=== PATIENT | female | born 1990 | race African-American/Black ===

== ENCOUNTER 2024-03-28 11:38 | Emergency (ER) | payer OTHER, SELFPAY ==
[2024-03-28 11:54] VITALS: BP 139/70; PULSE 87; RESP 16; TEMP 36.6; O2SAT 100
[2024-03-28 13:31] LABS: Basophils Percent Auto 0.5 % (0.2-1.2); Eosinophils Absolute Auto 0.1 K/mm3 (0-0.3); Eosinophils Percent Auto 1.3 % (0-4.4); Hematocrit 37.5 % (37.0-47.0); Immature Granulocyte Absolute 0.02 K/mm3 (0.00-0.031); Immature Granulocyte Percent A 0.2 % (0-0.5); Lymphocytes Absolute Auto 2.57 K/mm3 (0.9-3.2); Lymphocytes Percent Auto 30.8 % (18.3-44.2); Mean Corpuscular Hemoglobin 27.7 pg (26-34); Mean Corpuscular Volume 86.6 fl (80-100); Mean Platelet Volume 8.9 fl (7.4-10.4); Monocytes Absolute Auto 0.5 K/mm3 (0.1-0.6); Monocytes Percent Auto 5.9 % (2.6-8.5); Neutrophils Absolute Auto 5.1 K/mm3 (1.3-6.7); Neutrophils Percent Auto 61.3 % (45.5-73.1); Platelet Count Result 383 k/mm3 (150-375); Red Blood Count 4.33 M/mm3 (4.2-5.4); Red Cell Distribution Width 14.8 % (11.5-14.5); White Blood Count 8.3 K/mm3 (4.5-10.0)
[2024-03-28 13:38] LABS: Appearance Urine Clear (Clear); Bacteria Urine None Seen /hpf; Bilirubin Urine Negative (Negative); Blood Urine 3+ (Negative); Color Urine Yellow (Yellow); Glucose Urine UA Negative (Negative); Ketones Urine Negative (Negative); Leukocyte Esterase Ur Negative LEU/UL (Negative); Nitrate Urine Negative (Negative); Non Pathogenic Casts 0-2; Protein Urine Negative (Negative); RBC Urine >100 /hpf (0-2); Specific Grav Ur 1.009 (1.001-1.035); Squamous Epithelial Cell Urine None Seen /hpf (Few); Urobilinogen Urine 0.2 mg/dL (<2.0); WBC Urine 0-5 /hpf (0-3); pH Urine 5.5 (5.0-9.0)
[2024-03-28 13:41] LABS: Add Urine Microscopic? YES
[2024-03-28 13:43] LABS: Alanine Aminotransferase 8 U/L (6-35); Albumin Level 4.1 g/dL (3.5-5.1); Alkaline Phosphatase 69 U/L (38-126); Anion Gap 8 mmol/L (4-12); Aspartate Amino Transferase 22 U/L (14-36); Bilirubin,Total 0.3 mg/dL (0.2-1.3); Blood Urea Nitrogen 7 mg/dL (7-17); Calcium 8.6 mg/dL (8.4-10.2); Carbon Dioxide 27 mmol/L (22-30); Chloride 101 mmol/L (98-107); Estimated Glomerular Filt Rate > 60; Glucose 95 mg/dL (65-110); Sodium 136 mmol/L (137-145)
[2024-03-28 13:44] LABS: Prothrombin Time 13.3 Seconds (11.1-14.7)
[2024-03-28 13:45] LABS: Partial Thromboplastin Time 32.5 Seconds (22.3-36.8)
[2024-03-28 14:35] LABS: Pregnancy On Board Control Positive; Urine Pregnancy Test Negative
[2024-03-28] MEDS: KETOROLAC 15 MG/ML VIAL (*BKC) IV PUSH (14:54)
[2024-03-28] MEDS: SODIUM CHLORIDE 0.9% IV 1,000 ML 999 ML IV CONT (14:54)
[2024-03-28 14:59] VITALS: BP 126/82; PULSE 62; RESP 15; O2SAT 100
[2024-03-28 15:11] LABS: Thyroid Stimulating Hormone Reflex 0.396 uIU/mL (0.465-4.68)
--- NOTE | 2024-03-28 15:42 | ED.FEMALEGU ---
HPI - Female Genitourinary General Chief complaint: Vaginal Bleeding Stated complaint: heavy vaginal bleeding Time Seen by Provider: 03/28/24 14:04 History of Present Illness HPI Narrative: 33-year-old female with no past medical history presents to the emergency department for irregular vaginal bleeding. Patient states her LMP was 3 weeks ago. She had a short and light period couple of days and then it resolved. States 1 week later she began having a few days of bleeding again which then resolved. Yesterday she began bleeding more heavily which prompted her to come to the ED today. States at 8:00 a.m. this morning she saturated 2 tampons within 2 hours and passed multiple large clots. She states she feels fatigued but denies lightheadedness, syncope, chest pain or shortness of breath. She is reporting some lower abdominal cramping. She is not on control. Denies history of bleeding dyscrasias, denies gynecological history. Denies concern for or STDs. Denies dysuria or hematuria vaginal discharge. She is sexually active with 1 partner. Denies vaginal trauma. Reports a history of regular menstrual cycles up until this past month. Related Data Allergies Allergy/AdvReac Type Severity Reaction Status Date / Time cinnamon Allergy Unknown Verified 03/28/24 16:12 Review of Systems Review of Systems: All systems reviewed & are unremarkable except as noted in HPI and below Exam Narrative: GENERAL: Well-appearing, well-nourished, and in no acute distress. HEAD: Normocephalic, atraumatic. EYES: PERRLA and EOMI. ENT: Nares clear, no rhinorrhea or epistaxis. Mucous membranes moist. NECK: Supple. CHEST: Clear to auscultation. No respiratory distress. HEART: Regular rate and rhythm. No murmur heard. Normal peripheral pulses. ABDOMEN: Soft, nontender, nondistended, normal active bowel sounds. no rebound, guarding or rigidity. No CVA tenderness. : Normal external genitalia. Minimal a blood in the vaginal vault. No clots or discharge visualized. Cervical os is closed. No CMT, adnexal masses or tenderness. EXTREMITIES: Normal range of motion. No edema. SKIN: Warm, dry, no rash. NEURO: No focal deficits. Alert and oriented x3 Course Vital Signs Vital signs: Vital Signs Temperature 97.8 F 03/28/24 11:54 Pulse Rate 87 07/14/24 11:54 Respiratory Rate 16 03/28/24 11:54 Blood Pressure 139/70 03/28/24 11:54 Pulse Oximetry 100 03/28/24 11:54 Oxygen Delivery Room Air 03/28/24 11:54 Temperature 97.8 F 03/28/24 11:54 Pulse Rate 70 03/28/24 16:53 Respiratory Rate 16 03/28/24 16:53 Blood Pressure 122/82 03/28/24 16:53 Pulse Oximetry 100 03/28/24 16:53 Oxygen Delivery Room Air 03/28/24 11:54 MDM - Female Genitourinary MDM Narrative Medical decision making narrative: 33-year-old female with no past medical history presents to emergency department for regular vaginal bleeding and heavy bleeding this morning. Triage vitals stable. Exam is significant for the above. She is well-appearing on exam. CBCs of the leukocytosis. Hemoglobin is stable at 12. Chemistries are unremarkable. UA with a large amount of blood, no UTI. is negative. TSH is low at 0.396, reflex T4 is normal. workup discussed with the patient. patient was had put in a tampon and put on a pad prior to arrival to the ED. in 4 hour she had saturated the tampon but had not saturated the pad. Her bleeding was significantly improved on exam there is no signs of hemorrhaging, no large clots visualized. She does not have a chrome cleaner unfortunately but I do feel she is safe to be discharged home with outpatient follow-up. Referral provided. I did offer to start her on control to assist with menorrhagia which she politely declined. She was given IV Toradol and IV fluids with improvement in symptoms. Will send ibuprofen to the pharmacy and encourage close follow-up with gynecology. Stric
[2024-03-28 16:29] LABS: Free T4 Free Thyroxine Reflex 1.08 ng/dL (0.78-2.19)
[2024-03-28 16:53] VITALS: BP 122/82; PULSE 70; RESP 16; O2SAT 100
== END 2024-03-28 16:54 | disposition home or self-care (01) ==
PROVIDERS: Emergency Medicine; Emergency Provider Physician Assistant
DX: N92.0 Excessive and frequent menstruation with regular cycle (principal)
CPT/HCPCS: 36415; 80053; 81001; 81025; 84439; 84443; 84480; 85025; 85610; 85730; 96361; 96374; 99284; J1885; J7030

== ENCOUNTER 2024-04-02 14:48 | Outpatient (CLI) | payer OTHER, SELFPAY ==
--- NOTE | ~2024-04-02 | US_ITS ---
EXAMINATION: US pelvic complete w TV INDICATION: Abnormal uterine and vaginal bleeding Comparison:No prior studies for comparison. TECHNIQUE: Multiple transabdominal and endovaginal sonographic images of the pelvis performed. FINDINGS: The uterus measures 7.2 x 3.7 x 4.7 cm. The endometrial complex measures 6 mm. The right ovary measures 2.3 x 2.4 x 1.9 cm and the left ovary measures 2 x 1.2 x 1 cm. There are sm all follicles in each ovary. Normal doppler signal in both ovaries. There is no free fluid in the pelvis. There are no abnormal masses seen on either side. IMPRESSION: 1. Unremarkable pelvic ultrasound. Reviewed, dictated and finalized at location B.
== END 2024-04-02 14:49 ==
LOC: MICIMG 14:50
PROVIDERS: PCP Student in an Organized Health Care Education/Training Program; Visit Provider Student in an Organized Health Care Education/Training Program
DX: N93.9 Abnormal uterine and vaginal bleeding, unspecified (principal)
CPT/HCPCS: 76830; 76856

== ENCOUNTER 2025-02-22 20:28 | Emergency (ER) | payer OTHER, SELFPAY ==
--- NOTE | ~2025-02-22 | CT_ITS ---
CT abdomen pelvis w con Ordering provider: Diana Mccabe APRN History: 34 years Female with . generalized abdominal pain . Comparison: None. Technique: CT abdomen and pelvis with IV and without oral contrast. Automated exposure control and it erative reconstruction technique were employed. The dose-length product was 1689.45 mGy-cm. 100 mL Om nipaque 350 was given IV. Findings: VISUALIZED LOWER CHEST: Normal. UPPER ABDOMINAL ORGANS: Liver: Hepatomegaly. Gallbladder: Calcification is seen in the area of the neck of the gallbladder which may be a stone or wall calcification. Slightly thickened wall is noted. Spleen: Normal. Stomach/duodenum: Normal. Pancreas: Normal. Adrenals: Normal. Kidneys: Normal. PELVIC ORGANS: The bladder is underfilled. Uterus: Normal. 1.8 cm left ovarian cyst is noted. BOWEL AND MESENTERY: Colon: No evidence of diverticulitis. Normal appendix. Small Bowel: Normal. No obstruction. Peritoneum/mesentery: No free air or free fluid. No mesenteric lymphadenopathy. RETROPERITONEUM: Normal aorta. No retroperitoneal lymphadenopathy. MUSCULOSKELETAL: Superficial soft tissues: A fat-containing umbilical hernia. Otherwise, The superficial soft tissues are normal. Bones: Normal spine. Bilateral sacroiliacs. IMPRESSION: 1. Calcific area in the neck of the gallbladder which may be stones or wall calcification. Slight th ickening of the wall is noted. Ultrasound evaluation advised. 2. Hepatomegaly. 3. No evidence of appendicitis, diverticulitis or intestinal obstruction. Reviewed, dictated and finalized at location A. IMPRESSION: 1. Calcific area in the neck of the gallbladder which may be stones or wall ca lcification. Slight thickening of the wall is noted. Ultrasound evaluation advi sed. 2. Hepatomegaly. 3. No evidence of appendicitis, diverticulitis or intestinal obstruction.
[2025-02-22 20:33] VITALS: BP 109/77; PULSE 65; RESP 11; TEMP 36.7; O2SAT 100
--- NOTE | 2025-02-22 20:47 | PC.NURSE ---
Pt attempted to give urine sample but did not have enough for urinalysis.
[2025-02-22 20:50] LABS: BEDSIDEPREGUCG Negative (Negative)
[2025-02-22 20:55] LABS: Basophils Percent Auto 0.2 % (0.2-1.2); Eosinophils Absolute Auto 0.1 K/mm3 (0-0.3); Eosinophils Percent Auto 0.4 % (0-4.4); Hemoglobin 12.3 g/dL (12.0-15.0); Immature Granulocyte Absolute 0.03 K/mm3 (0.00-0.031); Immature Granulocyte Percent A 0.2 % (0-0.5); Lymphocytes Absolute Auto 2.61 K/mm3 (0.9-3.2); Lymphocytes Percent Auto 19.3 % (18.3-44.2); Mean Corpuscular HGB Conc 30.8 g/dl (32-36); Mean Corpuscular Hemoglobin 27.4 pg (26-34); Mean Corpuscular Volume 89.1 fl (80-100); Mean Platelet Volume 8.8 fl (7.4-10.4); Monocytes Absolute Auto 0.8 K/mm3 (0.1-0.6); Monocytes Percent Auto 6.2 % (2.6-8.5); Neutrophils Absolute Auto 9.9 K/mm3 (1.3-6.7); Neutrophils Percent Auto 73.7 % (45.5-73.1); Platelet Count Result 431 k/mm3 (150-375); Red Blood Count 4.49 M/mm3 (4.2-5.4); Red Cell Distribution Width 14.8 % (11.5-14.5); White Blood Count 13.5 K/mm3 (4.5-10.0)
[2025-02-22 21:11] LABS: Alanine Aminotransferase 10 U/L (6-35); Albumin Level 4.2 g/dL (3.5-5.1); Alkaline Phosphatase 82 U/L (38-126); Anion Gap 8 mmol/L (4-12); Aspartate Amino Transferase 24 U/L (14-36); Bilirubin,Total 0.4 mg/dL (0.2-1.3); Blood Urea Nitrogen 4 mg/dL (7-17); Calcium 9.2 mg/dL (8.4-10.2); Carbon Dioxide 25 mmol/L (22-30); Chloride 104 mmol/L (98-107); Estimated CRCL calculation 147 ml/min; Estimated Glomerular Filt Rate > 60; Glucose 122 mg/dL (65-110); Lipase 72 U/L (23-300); Potassium 3.5 mmol/L (3.4-5.0); Sodium 137 mmol/L (137-145); Total Protein 7.8 g/dL (6.3-8.2)
[2025-02-22 21:23] VITALS: BP 108/71; PULSE 60; RESP 14; O2SAT 94
[2025-02-22] MEDS: SODIUM CHLORIDE 0.9% IV 1,000 ML 999 ML IV CONT (21:23)
--- NOTE | 2025-02-22 21:23 | ED_ITS ---
HPI - Abdominal Pain General Chief Complaint: Abdominal Pain Stated Complaint: Abd pain, nausea/Vomiting Time Seen by Provider: 02/22/25 20:31 History of Present Illness HPI narrative: Patient is a 34-year-old female who presents to the ER with nausea/vomiting and abdominal pain. She reports she ate food around 10:00 a.m. this morning and her symptoms started around 11:00 a.m.. Patient reports she had the same symptoms on Friday. She reports it feels like there is a rubber band around my whole abdomen. She reports her last bowel movement was earlier today and it was ?looser but not diarrhea. Patient denies any urinary symptoms, chest pain, shortness of breath, recent fevers. She reports she drinks alcohol socially, but uses weed every day. Patient denies any chance of , her last menstrual period was 2 weeks ago. She any medical history relevant to this ER visit. Related Data Allergies Allergy/AdvReac Type Severity Reaction Status Date / Time cinnamon Allergy Mild Swelling Verified 02/22/25 20:42 of Lip/Tongue/Throat PMFSH Surgical History Surgical History (Updated 03/31/24 @ 08:19 by Peyton Loza CMA) Hx of tonsillectomy Family History Family History (Updated 03/31/24 @ 08:20 by Peyton Loza CMA) Mother Sickle cell anemia Sibling Sickle cell anemia Social History Social History (Updated 03/31/24 @ 08:20 by Peyton Loza CMA) Smoking status: Never smoker Alcohol intake: current Substance use: current Substance use type: marijuana Do You Feel Safe in your Home?: Yes Lack of Transportation: No Lack of Food: Never True Current Housing: I Have Housing Concerned About Future Housing: No Difficulty Paying Gas/Electric Bills: No Difficulty Paying for Meds: No Currently Unemployed: No Education: Bachelor's Degree Difficulty w/ Childcare or Family Care: No Living arrangements: with family Occupation/Education: occupation 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 Gender identity (if verbalized by the patient): Female Sexual Orientation (if Verbalized by the Patient): Straight or Heterosexual Course Vital Signs Vital signs: Vital Signs Temperature 36.7 C 02/22/25 20:33 Pulse Rate 65 02/22/25 20:33 Respiratory Rate 11 L 02/22/25 20:33 Blood Pressure 109/77 02/22/25 20:33 Pulse Oximetry 100 02/22/25 20:33 Oxygen Delivery Room Air 02/22/25 20:33 Temperature 36.7 C 02/22/25 20:33 Pulse Rate 60 02/22/25 21:23 Respiratory Rate 14 02/22/25 21:23 Blood Pressure 108/71 02/22/25 21:23 Pulse Oximetry 94 02/22/25 21:23 Oxygen Delivery Room Air 02/22/25 20:33 MDM - Abdominal Pain MDM Narrative Medical decision making narrative: Patient is a 34-year-old female who presents to the ER with nausea/vomiting and abdominal pain. She reports she ate food around 10:00 a.m. this morning and her symptoms started around 11:00 a.m.. Patient reports she had the same symptoms on Friday. She reports it feels like there is a rubber band around my whole abdomen. She reports her last bowel movement was earlier today and it was ?looser but not diarrhea. Patient denies any urinary symptoms, chest pain, shortness of breath, recent fevers. She reports she drinks alcohol socially, but uses weed every day. Patient denies any chance of , her last menstrual period was 2 weeks ago. She any medical history relevant to this ER visit. Labs Ordered: CBC, CMP, UA, UDS, lipase Imaging Ordered: CT abdomen pelvis Medications Ordered: 1 L normal saline IV bolus, Haldol IM, Benadryl 25 mg IV, Reglan 10 mg IV Results: CT abdomen pelvis indicates 1. Calcific area in the neck of the gallbladder which may be stones or wall calcification. Slight thickening of the wall is noted. Ultrasound evaluation advised. 2. Hepatomegaly. 3. No evidence of appendicitis, diverticulitis or intestinal obstruction. Diagnosis: cholecystitis, drug-induced nausea and vomiting Consults: general surgery (outpatient) Patient Education/Shared MDM: Results of lab work and imaging shared with patient. She endorses mild improvement of symptoms following medication administration, but continues to endorse mild RUQ pain. Pt will be given a dose of Zofran IV, then Weston PO prior to leaving to ensure she can tolerate PO intake. She was strongly advised to only take in clear liquids for the next 3-4 days. Patient advised to maintain hydration status upon discharge and follow-up with general surgery as soon as possible. She will be discharged home with a prescription for Augmentin, Zofran, and Weston. Strict return precautions provided. Patient verbalized understanding and is in agreement with plan. Vital signs stable at time of discharge. All questions answered. Differential Diagnosis Differential diagnosis: Likely abdominal pain, calculus of kidney, gastroenteritis and other (Cholecystitis, drug induced nausea and vomiting) Lab Data Attestation: I reviewed the patient's lab results. 02/22/25 20:48 02/22/25 20:48 Labs: Lab Results 02/22/25 02/22/25 02/22/25 Range/Units 20:45 20:48 21:22 WBC 13.5 H (4.5-10.0) K/mm3 RBC 4.49 (4.2-5.4) M/mm3 Hgb 12.3 (12.0-15.0) g/dL Hct 40.0 (37.0-47.0) % MCV 89.1 (80-100) fl MCH 27.4 (26-34) pg MCHC 30.8 L (32-36) g/dl RDW 14.8 H (11.5-14.5) % Plt Count 431 H (150-375) k/mm3 MPV 8.8 (7.4-10.4) fl Immature Gran % (Auto) 0.2 (0-0.5) % Neut % (Auto) 73.7 H (45.5-73.1) % Lymph % (Auto) 19.3 (18.3-44.2) % Menard % (Auto) 6.2 (2.6-8.5) % Eos % (Auto) 0.4 (0-4.4) % Baso % (Auto) 0.2 (0.2-1.2) % Lymph # (Auto) 2.61 (0.9-3.2) K/mm3 Menard # (Auto) 0.8 H (0.1-0.6) K/mm3 Eos # (Auto) 0.1 (0-0.3) K/mm3 Baso # (Auto) 0.0 (0.0-0.1) K/mm3 Abs Immat Gran (auto) 0.03 (0.00-0.031) K/mm3 Absolute Neuts (auto) 9.9 H (1.3-6.7) K/mm3 Absolute Nucleated RBC 0.000 (0.0-0.012) K/mm3 Nucleated RBC % 0.0 (0.0-0.2) % Sodium 137 (137-145) mmol/L Potassium 3.5 (3.4-5.0) mmol/L Chloride 104 (98-107) mmol/L Carbon Dioxide 25 (22-30) mmol/L Anion Gap 8 (4-12) mmol/L BUN 4 L (7-17) mg/dL Creatinine 0.62 L (0.7-1.0) mg/dL Estim Creat Clear Calc 147 ml/min Estimated GFR > 60 (59 - ) Glucose 122 H (65-110) mg/dL Calcium 9.2 (8.4-10.2) mg/dL Total Bilirubin 0.4 (0.2-1.3) mg/dL AST 24 (14-36) U/L ALT 10 (6-35) U/L Alkaline Phosphatase 82 (38-126) U/L Total Protein 7.8 (6.3-8.2) g/dL Albumin 4.2 (3.5-5.1) g/dL Lipase 72 (23-300) U/L Urine Color Yellow (Yellow) Urine Appearance Turbid H (Clear) Urine pH 5.0 (5.0-9.0) Ur Specific [place] 1.024 (1.001-1.035) Urine Protein 1+ H (Negative) mg/dL Urine Glucose (UA) Negative (Negative) mg/dL Urine Ketones 1+ H (Negative) mg/dL Ur Blood (Man) Negative (Negative) Urine Nitrate Negative (Negative) Urine Bilirubin Negative (Negative) Urine Urobilinogen 1.0 (<2.0) mg/dL Leukocyte Esterase Rfl Negative (Negative) LEE/UL Urine RBC 3-5 H (0-2) /hpf Urine WBC 0-5 (0-3) /hpf Ur Squamous Epith Cells Few (Few) /hpf Urine Bacteria 1+ H /hpf Urine Casts 3-5 POC Urine HCG, Qual Negative Negative (Negative) Urine Opiates Screen (Negative) Urine Methadone Screen (Negative) Ur Barbiturates Screen (Negative) Ur Phencyclidine Scrn (Negative) Ur Amphetamine Screen (Negative) U Benzodiazepines Scrn (Negative) Urine Cocaine Screen (Negative) U Cannabinoids Screen (Negative) 02/22/25 Range/Units 21:24 WBC (4.5-10.0) K/mm3 RBC (4.2-5.4) M/mm3 Hgb (12.0-15.0) g/dL Hct (37.0-47.0) % MCV (80-100) fl MCH (26-34) pg MCHC (32-36) g/dl RDW (11.5-14.5) % Plt Count (150-375) k/mm3 MPV (7.4-10.4) fl Immature Gran % (Auto) (0-0.5) % Neut % (Auto) (45.5-73.1) % Lymph % (Auto) (18.3-44.2) % Menard % (Auto) (2.6-8.5) % Eos % (Auto) (0-4.4) % Baso % (Auto) (0.2-1.2) % Lymph # (Auto) (0.9-3.2) K/mm3 Menard # (Auto) (0.1-0.6) K/mm3 Eos # (Auto) (0-0.3) K/mm3 Baso # (Auto) (0.0-0.1) K/mm3 Abs Immat Gran (auto) (0.00-0.031) K/mm3 Absolute Neuts (auto) (1.3-6.7) K/mm3 Absolute Nucleated RBC (0.0-0.012) K/mm3 Nucleated RBC % (0.0-0.2) % Sodium (137-145) mmol/L Potassium (3.4-5.0) mmol/L Chloride (98-107) mmol/L Carbon Dioxide (22-30) mmol/L Anion Gap (4-12) mmol/L BUN (7-17) mg/dL Creatinine (0.7-1.0) mg/dL Estim Creat Clear Calc ml/min Estimated GFR (59 - ) Glucose (65-110) mg/dL Calcium (8.4-10.2) mg/dL Total Bilirubin (0.2-1.3) mg/dL AST (14-36) U/L ALT (6-35) U/L Alkaline Phosphatase (38-126) U/L Total Protein (6.3-8.2) g/dL Albumin (3.5-5.1) g/dL Lipase (23-300) U/L Urine Color (Yellow) Urine Appearance (Clear) Urine pH (5.0-9.0) Ur Specific [place] (1.001-1.035) Urine Protein (Negative) mg/dL Urine Glucose (UA) (Negative) mg/dL Urine Ketones (Negative) mg/dL Ur Blood (Man) (Negative) Urine Nitrate (Negative) Urine Bilirubin (Negative) Urine Urobilinogen (<2.0) mg/dL Leukocyte Esterase Rfl (Negative) LEE/UL Urine RBC (0-2) /hpf Urine WBC (0-3) /hpf Ur Squamous Epith Cells (Few) /hpf Urine Bacteria /hpf Urine Casts POC Urine HCG, Qual (Negative) Urine Opiates Screen Negative (Negative) Urine Methadone Screen Negative (Negative) Ur Barbiturates Screen Negative (Negative) Ur Phencyclidine Scrn Negative (Negative) Ur Amphetamine Screen Negative (Negative) U Benzodiazepines Scrn Negative (Negative) Urine Cocaine Screen Negative (Negative) U Cannabinoids Screen Positive A (Negative) Imaging Data Attestation: I personally reviewed and interpreted this imaging study as follows: Radiologist's impression: ITS Impressions Abdomen/Pelvis CT 02/22/25 22:59 IMPRESSION: 1. Calcific area in the neck of the gallbladder which may be stones or wall calcification. Slight thickening of the wall is noted. Ultrasound evaluation advised. 2. Hepatomegaly. 3. No evidence of appendicitis, diverticulitis or intestinal obstruction. Discharge Plan Discharge Clinical Impression: Acute cholecystitis, Drug-induced nausea and vomiting, Abdominal pain Patient Disposition: Home Condition: Stable Instructions: Antibiotic Form, Cholecystitis (ED), Abdominal Pain (ED) Additional Instructions: Please return to the ER with any worsening symptoms. Follow-up with General surgery as soon as possible. Take all medications as prescribed, including regularly scheduled medications. Complete your full dose of antibiotics. Patient Language: Arabic Prescriptions: New ondansetron 4 mg tablet,disintegrating 4 mg PO Q8H Qty: 21 0RF amoxicillin-pot clavulanate 875-125 mg tablet 1 tablet PO Q12H Qty: 20 0RF hydrocodone-acetaminophen 5-325 mg tablet 1 tablet PO Q6H PRN (Reason: pain) Qty: 10 0RF No Action ibuprofen 800 mg tablet 800 mg PO TID PRN (Reason: pain) Qty: 20 0RF Follow-up/Referrals: Javad Alfredo MD [Primary Care Provider] - Edgar Cespedes DO [Physician] - (general surgery ) Stand Alone Forms: Work/School Release IP Time of Disposition: 00:32
[2025-02-22 21:24] LABS: BEDSIDEPREGUCG Negative (Negative)
[2025-02-22] MEDS: HALOPERIDOL LACTATE 5 MG/ML VIAL IM (21:24)
[2025-02-22 21:40] LABS: Add Urine Microscopic? YES; Appearance Urine Turbid (Clear); Bacteria Urine 1+ /hpf; Bilirubin Urine Negative (Negative); Blood Urine Negative (Negative); Color Urine Yellow (Yellow); Glucose Urine UA Negative (Negative); Ketones Urine 1+ mg/dL (Negative); Leukocyte Esterase Ur Negative LEU/UL (Negative); Nitrate Urine Negative (Negative); Protein Urine 1+ mg/dL (Negative); Specific Grav Ur 1.024 (1.001-1.035); Squamous Epithelial Cell Urine Few /hpf (Few); WBC Urine 0-5 /hpf (0-3)
[2025-02-22 21:53] VITALS: BP 116/79; PULSE 52; RESP 18; O2SAT 100
[2025-02-22] MEDS: diphenhydrAMINE HCl INJ 50 MG/ML VIAL 25 MG IV PUSH (22:14)
[2025-02-22] MEDS: METOCLOPRAMIDE HCL INJ 10 MG/2 ML VIAL IV PUSH (22:14)
[2025-02-22 22:50] LABS: Amphetamine Screen Urine Negative (Negative); Barbiturate Screen Urine Negative (Negative); Benzodiazepines Screen Urine Negative (Negative); Cannabinoid Screen Urine Positive (Negative); Cocaine Screen Urine Negative (Negative); Methadone Screen Urine Negative (Negative); Opiate Screen Urine Negative (Negative); Phencyclidine Screen Urine Negative (Negative)
[2025-02-22 23:01] VITALS: BP 128/87; PULSE 57; RESP 19; O2SAT 100
[2025-02-22 23:32] VITALS: BP 112/74; PULSE 64; RESP 21; O2SAT 100
[2025-02-23 00:01] VITALS: BP 122/85; PULSE 65; RESP 25; O2SAT 98
[2025-02-23 00:31] VITALS: BP 123/78; PULSE 53; RESP 21; O2SAT 99
[2025-02-23] MEDS: HYDROcodone/acetaminophen (*CRX) 5-325 MG TABLET 1 TAB PO (00:33)
[2025-02-23] MEDS: ONDANSETRON INJ 4 MG/2 ML VIAL IV PUSH (00:33)
== END 2025-02-23 00:42 | disposition home or self-care (01) ==
PROVIDERS: Emergency Provider Registered Nurse; PCP Student in an Organized Health Care Education/Training Program
DX: K81.0 Acute cholecystitis (principal); T40.711A Poisoning by cannabis, accidental (unintentional), initial encounter; R11.2 Nausea with vomiting, unspecified; R10.9 Unspecified abdominal pain; R16.0 Hepatomegaly, not elsewhere classified
CPT/HCPCS: 36415; 74177; 80053; 80307; 81001; 81025; 83690; 85025; 96361; 96372; 96374; 96375; 99284; A9270; J1200; J1630; J2405; J2765; J7030; Q9967

== ENCOUNTER 2025-04-05 08:10 | Outpatient (CLI) | payer OTHER, SELFPAY ==
--- OUTSIDE RECORDS SUMMARY | 2025-04-05 08:14 | XMS_ITS | Referral Summary ---
Author Organization [facility] Medical O ffice Building [address] [place] [id number] Care Team Providers Care Human Performance Professor Name Role Phone Elizabeth Medina MD Primary Care Provider Encounters Date Type Department Care Team Description 03/14/2025 Telephone [facility] 7th Floor [address] [place] [address] Jerica Trejo Scheduling Appointments (/) 03/07/2025 10:00 AM CDT Office Visit [facility] [address] [facility] [address], [address] [place] [address] Elizabeth Medina MD Encounter for screening and preventative care (Primary Dx); Encounter to establish care; Cervical cancer screening; Encounter for vaccination; Gallstones; ANDREA (generalized anxiety disorder); Primary insomnia; Depression screening from Last 3 Months Allergies No known active allergies Medications ondansetron ODT (ZOFRAN-ODT) 4 mg disintegrating tablet Take 1 tablet (4 mg total) by mouth every 8 (eight) hours as needed 03/04/20 25 Active HYDROcodone-acetam inophen (NORCO) 5-325 mg per tablet Take 1 tablet by mouth every 4 (four) hours as needed 02/24/20 25 025 Discontinued Active Problems Problem Noted Date Diagnosed Date Gallstones 03/07/2025 Primary insomnia 03/07/2025 ANDREA (generalized anxiety disorder) 03/07/2025 Immunizations Immunization Administration Dates Next Due Tdap 03/07/2025 Social History Tobacco Use Types Packs/Day Years Used Date Smoking Tobacco: Never Smokeless Tobacco: Never Tobacco Cessation:Counseling Given: Not Answered PHQ-2 Answer Date Recorded PHQ-2 Total Score (If total score is 3 or more points, staff should administer the PHQ-9) 2 03/07/2025 Comments Unknown Sex and Gender Information Value Date Recorded Sex Assigned at Not on file Legal Sex Female 10:43 AM FIRE[employer]AK C[employer]TER Gender Identity Female 07/28/2024 10:00 AM FIRE[employer]AK C[employer]TER Sexual Orientation Lesbian 07/28/2024 10 :00 AM FIRE[employer]AK C[employer]TER Sexual Orientation Pansexual 07/28/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 Vital Signs Vital Sign Reading Time Taken Comments Blood Pressure 101/64 03/07/2025 9:55 AM CDT Pulse 89 03/07/2025 9:55 AM CDT Temperature 36.7 C (98 F) 03/07/2025 9:55 AM CDT Respiratory Rate - - Oxygen Saturation 98% 03/07/2025 9:55 AM CDT Inhaled Oxygen Concentration - - Weight 143.5 kg (316 lb 6.4 oz) 03/07/2025 9:55 AM CDT Height 154.9 cm (5' 1) 03/07/2025 9:55 AM CDT Body Mass Index 59.78 03/07/2025 9:55 AM CDT Plan of Treatment Not on file Insurance [employer] Care Teams Human Performance Professor Relationship Specialty Start Date End Date Elizabeth Medina MD [address] [facility] [address] [place] [address] PCP - General 03/07/25
--- OUTSIDE RECORDS SUMMARY | 2025-04-05 08:14 | XMS_ITS | Clinical Summary ---
Author Organization [facility] Medical O ffice Building [address] [place] [phone] Care Team Providers Care Camp Nurse Name Role Phone Elizabeth Medina MD Primary Care Provider Allergies No known active allergies Medications ondansetron [...] insomnia 03/07/2025 ANDREA (generalized anxiety disorder) 03/07/2025 Encounters Date Type Department Care Team Description 03/14/2025 Telephone [facility] Obstetrics and Gynecology [facility] Outpatient Health 7th Floor [address] [place] [address] Jerica Trejo Scheduling Appointments (/) 03/07/2025 10:00 AM CDT Office Visit [facility] Complete Care [address] [facility] Medical Office Building 4, [address] [place] [address] Elizabeth Medina MD Encounter for screening and preventative care (Primary Dx); Encounter to establish care; Cervical cancer screening; Encounter for vaccination; Gallstones; ANDREA (generalized anxiety disorder); Primary insomnia; Depression screening from Last 3 Months Immunizations Immunization Administration Dates Next Due Tdap 03/07/2025 Surgical History Surgery Date Site/Laterality Comments TONSILLECTOMY 09/15/1992 - 09/14/1993 ADENOIDECTOMY 09/15/1992 - 09/14/1993 Family History * Patient is adopted Medical History Relation Name Comments Sickle cell anemia Other siblings Relation Name Status Comments Other siblings Social History Tobacco Use Types Packs/Day Years Used Date Smoking Tobacco: Never Smokeless Tobacco: Never Tobacco Cessation:Counseling Given: Not Answered PHQ-2 Answer Date Recorded PHQ-2 Total Score (If total score is 3 or more points, staff should administer the PHQ-9) 2 03/07/2025 Comments Unknown Sex and Gender Information Value Date Recorded Sex Assigned at Not on file Legal Sex 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 Gender Identity Female 07/28/2024 10:00 AM FOUNTAIN MANAGER Sexual Orientation Lesbian 07/28/2024 10 :00 AM FOUNTAIN MANAGER Sexual Orientation Pansexual 07/28/2024 10 :00 AM FOUNTAIN MANAGER Obstetrics History Last Filed Vital Signs Vital Sign Reading [...] 03/07/2025 9:55 AM CDT Plan of Treatment Health Maintenance Due Date Last Done Comments Cervical Cancer Screening 1989 Hepatitis C Screening 1989 Hepatitis B Screening 2007 Covid-19 Vaccine ( season) 2024 01/22/2021, 12/24/2020 Influenza Vaccine (#1) 2025 Depression Screening 03/07/2026 03/07/2025 Regular Well Visit/Exam 18-64 03/07/2026 03/07/2025 DTaP/Tdap/Td Vaccine (2 - Td or Tdap) 03/07/2035 03/07/2025 HPV Vaccines Aged Out No longer eligi ble based on patient's age to complete this topic Pneumococcal vaccine <65 Aged Out No longer eligible based on patient's age to complete this topic Varicella Vaccines Discontinued Insurance Care Teams Camp Nurse Relationship Specialty Start Date End Date Elizabeth Medina MD [address] [id number] PCP - General 03/07/25
[2025-04-05 09:03] LABS: Amylase 60 U/L (30-110)
== END 2025-04-05 08:11 | disposition home or self-care (01) ==
LOC: ANHLAB 08:11
PROVIDERS: Referring Provider Surgery; Visit Provider Anesthesiology
DX: K80.00 Calculus of gallbladder with acute cholecystitis without obstruction (principal)
CPT/HCPCS: 36415; 82150; 86850; 86900; 86901

== ENCOUNTER 2025-04-12 03:36 | Day surgery (SDC) | payer OTHER, SELFPAY ==
[2025-04-04 14:00] VITALS: BMI 57.2
--- NOTE | 2025-04-04 14:03 | PC.NURSE ---
Report to the Outpatient Waiting Room, entrance under the green pavilion located off [facility], at time 0600__ on date _04/12/25_. Planned Procedure Time: 729__.? Time changes happen often and if your time is changed the preop area will call you the afternoon before. - You and your visitor will be asked to self-screen and do not enter if you have any COVID symptoms. Please call surgeon if you need to reschedule. - A mask is optional within the hospital at this time. Patients may have clear liquids (water, carbonated beverages, clear teas, apple juice) until 3 hours prior to surgery with a maximum of 20 ounces. - No food from midnight until time of surgery and no smoking, or chewing tobacco (or any form of nicotine). No chewing gum, candy or mints. - Infants may have breast milk until 4 hours before surgery, infant formula 6 hours prior to surgery. - Children will be allowed to drink immediately following surgery.? If applicable, please bring a bottle or sippy cup to assist with drinking. Juice, water, soda, and popsicles are readily available.? For infants on formula, please bring formula the day of surgery.? Pacifiers are allowed. Take only the following medications with a SIP of water on the morning of surgery: ZOFRAN DO NOT STOP ANY OF YOUR OTHER PRESCRIPTION MEDICATIONS PRIOR TO SURGERY EXCEPT THE FOLLOWING Hold all vitamins and supplements for 3 days per anesthesiologist. Medications to discontinue per physician Date to take last dose Please no make-up, nail turkish, hairspray, perfume, deodorant, or body powder the day of surgery.? No jewelry (including any body piercings) or valuables the day of surgery, leave them at home.? Please take a shower or bath the night before, or the morning of, surgery with HIBICLENS antibacterial soap.? Wear comfortable, loose fitting clothing.? Children are encouraged to wear pajamas. - Jewelry must be removed prior to entering the operating room.? Rings and piercings that are not removed may be cut off. - The hospital will not accept responsibility for valuables.? - Please leave all valuables, including medications, at home the day of surgery. If you are going home after surgery, a licensed straddle truck driver must drive you home.? - NO public transportation without another adult if you receive anesthesia. - We recommend that an adult stay with you for 24 hours following discharge. - We also recommend that you do not drive, make important decision, drink alcoholic beverages, or take any drugs that were not prescribed by your health care provider for at least 24 hours after your discharge time. For Pediatric surgeries, we recommend two adults accompany the child home. Follow any additional instructions given to you from your surgeon. Telephone instructions given to __PATIENT__and asked if any additional questions and then verbalized understanding. Patient advised to call surgeon office or pre surgery nurse liaison [phone] if any additional questions.
[2025-04-12] VITALS (11 sets, daily range): BP systolic 111–149; BP diastolic 62–88; PULSE 59–78; RESP 16–25; TEMP 36.6; O2SAT 97–100
--- OUTSIDE RECORDS SUMMARY | 2025-04-12 03:39 | XMS_ITS | Referral Summary ---
Author Organization [facility] Medical O ffice Building [address] [place] [phone] Care Team Providers Care Odd Job Laborer Name Role Phone Elizabeth Medina MD Primary Care Provider Encounters Date Type Department Care Team Description 03/14/2025 Telephone [facility] Obstetrics and Gynecology [facility] Outpatient Health 7th Floor [address] [place] [address] Jerica Trejo Scheduling Appointments (/) 03/07/2025 10:00 AM CDT Office Visit [facility] Complete Care [address] [facility] Office Building 4, [address] [place] [address] Elizabeth Medina MD Encounter for screening and preventative care (Primary Dx); Encounter to establish care; Cervical cancer screening; Encounter for vaccination; Gallstones; ANDREA (generalized anxiety disorder); Primary insomnia; Depression screening from Last 3 Months Allergies No known active allergies Medications ondansetron ODT (ZOFRAN-ODT) 4 mg disintegrating tablet Take 1 tablet (4 mg total) by mouth every 8 (eight) hours as needed Active Active Problems Problem Noted Date Diagnosed Date [...] on file Legal Sex Female 10:43 AM INSOLE REINFORCER Gender Identity Female 07/28/2024 10:00 AM INSOLE REINFORCER Sexual Orientation Lesbian 07/28/2024 10 :00 AM INSOLE REINFORCER Sexual Orientation Pansexual 07/28/2024 10 :00 AM INSOLE REINFORCER Last Filed Vital Signs Vital Sign Reading [...] Plan of Treatment Not on file Insurance [employer] Care Teams Odd Job Laborer Relationship Specialty Start Date End Date Elizabeth Medina MD [address] [id number] PCP - General 03/07/25
--- OUTSIDE RECORDS SUMMARY | 2025-04-12 03:40 | XMS_ITS | Clinical Summary ---
Author Organization [facility] Medical O [facility] Building [address] [place] [phone] Care Team Providers Care Payroll Accountant Name Role Phone Elizabeth Medina MD Primary Care Provider Allergies No known active allergies Medications ondansetron ODT (ZOFRAN-ODT) 4 mg disintegrating tablet Take 1 tablet (4 mg total) by mouth every 8 (eight) hours as needed Active Active Problems Problem Noted Date Diagnosed Date Gallstones 03/07/2025 Primary insomnia 03/07/2025 ANDREA (generalized anxiety disorder) 03/07/2025 Encounters Date Type Department Care Team Description 03/14/2025 Telephone [facility] Obstetrics and Gynecology [address] [facility] [place] Outpatient Health 7th Floor [address] [place] [address] Jerica Trejo Scheduling Appointments (/) 03/07/2025 10:00 AM CDT Office Visit [facility] Complete Care [address] [facility] Medical Office Building 4, [address] [place] [address] Elizabeth Medina MD Encounter for [...] on file Legal Sex Female 10:43 AM HAND TUFTER Gender Identity Female 07/28/2024 10:00 AM HAND TUFTER Sexual Orientation Lesbian 07/28/2024 10 :00 AM HAND TUFTER Sexual Orientation Pansexual 07/28/2024 10 :00 AM HAND TUFTER Obstetrics History Last Filed Vital Signs Vital [...] C Screening 1989 Hepatitis B Screening 2007 HPV Vaccines (1 - 3-dose SCDM series) 2016 Covid-19 Vaccine ( season) 2024 01/22/2021, 12/24/2020 Influenza Vaccine (#1) 2025 Depression Screening 03/07/2026 03/07/2025 Regular Well Visit/Exam 18-64 03/07/2026 03/07/2025 DTaP/Tdap/Td Vaccine (2 - Td or Tdap) 03/07/2035 03/07/2025 Pneumococcal vaccine <65 Aged Out No longer eligible based on patient's age to complete this topic Varicella Vaccines Discontinued Insurance Care Teams Payroll Accountant Relationship Specialty Start Date End Date Elizabeth Medina MD [address] [id number] PCP - General 03/07/25
[2025-04-12] MEDS: LACTATED RINGERS 1,000 ML 30 ML IV CONT ×2 (06:35→09:25)
[2025-04-12] MEDS: INDOCYANINE GREEN 25 MG VIAL WITH DILUENT 3.75 MG IV PUSH (06:35)
[2025-04-12] MEDS: KETOROLAC 15 MG/ML VIAL (*BKC) IV PUSH (06:40)
[2025-04-12] MEDS: ONDANSETRON INJ 4 MG/2 ML VIAL IV PUSH ×2 (06:50→10:15)
--- NOTE | 2025-04-12 07:11 | WPDHPUPDATE1 ---
History and Physical Update Update Date/Time: 04/12/25 07:11 History and Physical has been reviewed, including an updated exam of the patient. There are NO changes in the patient's condition. Risks, benefits, and alternatives have been discussed and questions answered. Patient agrees to proceed with procedure.
--- NOTE | 2025-04-12 07:11 | PM.IMHP ---
H&P: HPI History of Present Illness Date/Time: 04/12/25 07:11 Chief Complaint: Acute cholecystitis Narrative: 34 yo woman presents for robotic assisted laparoscopic cholecystectomy. She reports no significant changes since last seen in office. Review of Systems Review of Systems: All systems reviewed & are unremarkable except as noted in HPI and below Constitutional: Constitutional: Denies chills, Denies fever(s), Denies headache(s) and Denies weight loss Eyes: Eyes: Denies change in vision ENT: Denies dizziness, Denies headache(s), Denies neck mass and Denies throat swelling Cardiovascular: Cardiovascular: Denies chest pain, Denies lightheadedness and Denies dyspnea Respiratory: Respiratory: Denies cough, Denies dyspnea and Denies wheezing Gastrointestinal: Gastrointestinal: Denies abdominal pain, Denies change in bowel habits, Denies nausea and Denies vomiting Genitourinary: Genitourinary: Denies hematuria and Denies dysuria Musculoskeletal: Musculoskeletal: Reports as per HPI Integumentary/Breasts: Skin/Breast: Reports as per HPI Neurologic: Denies dizziness and Denies headache(s) Allergic/Immunologic: Allergic/Immunologic: Denies throat swelling and Denies wheezing [facility] Surgical History Surgical History Hx of tonsillectomy Family History Family History Mother Sickle cell anemia Sibling Sickle cell anemia Social History Social History (Updated 03/31/24 @ 08:20 by Peyton Loza [facility]) Smoking status: Never smoker Alcohol intake: current Drinks per week: 3 Substance use: current Substance use type: marijuana Other substance usage details: FOR NAUSEA 3X A WEEK Do You Feel Safe in your Home?: Yes Lack of Transportation: No Lack of Food: Never True Current Housing: I Have Housing Concerned About Future Housing: No Difficulty Paying Gas/Electric Bills: No Difficulty Paying for Meds: No Currently Unemployed: No Education: Bachelor's Degree Difficulty w/ Childcare or Family Care: No Living arrangements: with family Occupation/Education: occupation 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 Gender identity (if verbalized by the patient): Female Sexual Orientation (if Verbalized by the Patient): Straight or Heterosexual Meds Home Medications and Allergies Home Medications ?Medication ?Instructions ?Recorded ?Confirmed ?Type ondansetron 4 mg disintegrating 4 mg PO Q8H #10 tabs 03/21/25 04/04/25 Rx tablet Allergies Allergy/AdvReac Type Severity Reaction Status Date / Time cinnamon Allergy Mild Swelling Verified 04/04/25 13:54 of Lip/Tongue/Throat Exam Const: General: no acute distress and alert Orientation/consciousness: patient oriented x3 HENMT: Head: normocephalic and atraumatic Ears: hearing grossly normal bilaterally Face/Nose/Sinus: Normal nares present Mouth: Yes Normal oral and palatal mucosa present Eyes: Periorbital: periorbital findings normal Sclera: sclerae normal EOM: EOMs intact bilaterally Neck: Neck: normal visual inspection, no lymphadenopathy and trachea midline Chest: Chest palpation & inspection: normal inspection of the chest Resp: Effort & Inspection: normal respiratory effort Auscultation: clear to auscultation bilaterally Cardio: Jugular venous distension: no JVD Rate: regular rate Rhythm: regular rhythm Heart sounds: S1 normal heart sound present and S2 normal heart sound present Peripheral pulses: Peripheral pulses 2+ throughout GI: Inspection: normal to inspection GI Palp: Yes Soft to palpation, No Tenderness to palpation present (GI), No Guarding due to palpation present (GI) and No Rebound tenderness present Percussion: Yes normal to percussion Auscultation: normal bowel sounds : General: Yes no CVA tenderness Back/Spine/Pelvis: Back: no CVA tenderness Neuro: General: patient oriented x3, no focal motor deficits and CN's II-XI intact bilaterally Cognition (Neuro): normal cognition Speech: normal speech Motor exam (neuro): 5/5 motor strength present throughout Extrem: General: capillary refill normal and no clubbing, cyanosis or edema Assessment and Plan Assessment and plan (1) Acute calculous cholecystitis: Code(s): K80.00 - Calculus of gallbladder with acute cholecystitis without obstruction Status: Acute Assessment and Plan: I have recommended laparoscopic cholecystectomy, da Sarah assisted. I have discussed the procedure, risks, benefits, and alternatives with the patient. All questions answered. No changes since last seen in office.
--- NOTE | 2025-04-12 07:16 | WPDANESEPPF ---
Anes - Initial Pre Proc Eval Procedure: Operation Date: 04/12/25 07:30 Proposed Procedures p Laparoscopic Cholecystectomy Davinci Assisted - Edgar Cespedes DO Date/Time: 04/12/25 07:16 Surgeon: Edgar Cespedes DO Pre Op Diagnosis: acute calculous cholecystitis Patient Data Age: 34 Gender: F Height: 1.57 m Weight: 142 kg Allergies Allergy/AdvReac Type Severity Reaction Status Date / Time cinnamon Allergy Mild Swelling Verified 04/04/25 13:54 of Lip/Tongue/Throat Home Medications ?Medication ?Instructions ?Recorded ?Confirmed ?Type ondansetron 4 mg disintegrating 4 mg PO Q8H #10 tabs 03/21/25 04/04/25 Rx tablet Patient hx anesthesia problems: none Family hx anesthesia problems: none Results Review: All pre-operative results and documents have been reviewed as part of the pre-operative evaluation. [facility] Past Medical History Medical History (Updated 04/12/25 @ 07:16 by Kareem Noguera MD) BMI 50.0-59.9, adult Surgical History Surgical History Hx of tonsillectomy Family History Family History Mother Sickle cell anemia Sibling Sickle cell anemia Social History Social History Smoking status: Never smoker Alcohol intake: current Drinks per week: 3 Substance use: current Substance use type: marijuana Other substance usage details: FOR NAUSEA 3X A WEEK Do You Feel Safe in your Home?: Yes Lack of Transportation: No Lack of Food: Never True Current Housing: I Have Housing Concerned About Future Housing: No Difficulty Paying Gas/Electric Bills: No Difficulty Paying for Meds: No Currently Unemployed: No Education: Bachelor's Degree Difficulty w/ Childcare or Family Care: No Living arrangements: with family Occupation/Education: occupation 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 Gender identity (if verbalized by the patient): Female Sexual Orientation (if Verbalized by the Patient): Straight or Heterosexual Anes - Eval Final PreProcedure Day of Procedure 04/12/25 07:16 Patient weight: super morbidly obese Heart: regular rate and rhythm Lungs: clear to auscultation Airway: Mallampati scale class II Neurological: alert and oriented Last oral intake: >/= 8 hours ASA classification: III Emergent: no Anesthetic plan: proceed Anesthesia type and monitoring: general ETT and standard monitoring Results Review: All pre-operative results and documents have been reviewed as part of the pre-operative evaluation. Informed Consent: The patient's anesthetic plan and its attendant risks and benefits were discussed with the patient/family/POA. Questions were solicited and answers provided to the satisfaction of the patient/family/POA.
[2025-04-12] MEDS: ceFAZolin 3 GM/D5W 100 ML 100 ML IVPB (07:30)
[2025-04-12 07:35] LABS: BEDSIDEPREGUCG Negative (Negative)
[2025-04-12] MEDS: ACETAMINOPHEN 500 MG TABLET 1000 MG PO (07:37)
--- NOTE | 2025-04-12 07:45 | SUR.PREOP ---
0650 PT REPORT BEING NAUSTATED AND HOT WITH SOME LIP TIGHTENING, NO TROUBLE BREATHING. PT MEDICATED.
[2025-04-12] MEDS: BUPIVACAINE/EPINEPHRINE 0.5% 50 ML VIAL 30 ML INFILTRATE (08:04)
--- NOTE | 2025-04-12 08:49 | S_PTH ---
PATIENT: Pepe Rascon LOC: [facility] U#:[id number] AGE/SX: 34/F ROOM: RE04/12/[address]: Edgar Cespedes DO : 1990 BED: DIS: 04/12/2025 SPEC #: [id number] RECD: 04/12/25 09:39 STATUS: TRENT REMarylu #: [id number] EARLENE: 04/12/25 08:[address]: Edgar Cespedes DEPT: [facility] Surgical RECD BY: Connie Cota Tissues: A - Gallbladder Procedures: Hematoxylin and Eosin Stain Gross and Microscopic Level 3
--- NOTE | 2025-04-12 09:20 | P.OP_ITS ---
Procedure Note - Detailed Date of Procedure 04/12/25 Pre-op Diagnosis acute calculous cholecystitis Post-op Diagnosis Same Procedure Performed 1. Laparoscopic cholecystectomy with cholangiography, da Sarah assisted 2. Interpretation of cholangiography Surgeon Edgar Cespedes DO Anesthesia General and Local (0.5% bupivacaine) Indications This is a 34-year-old woman who presented with a prior history of acute calculous cholecystitis. She was in the emergency department a couple months ago with acute onset of abdominal pain. Workup showed evidence of acute cholecystitis and she was discharged home from the ED. She then followed up in the office and was still continuing to have some pain but it was slightly improved. Discussions were made with the patient about trying to allow time for inflammation to go down before proceeding with surgery. Discussions were made with the patient about surgical options and decision was made to proceed with robotic assisted laparoscopic cholecystectomy with cholangiography. Findings 1.5 mL of indocyanine green was administered intravenously in preop prior to the surgery. Near infrared fluorescence imaging was utilized intraoperatively to help visualize the biliary anatomy. The gallbladder itself was actually not showing any uptake of the indocyanine green, but in the distal neck of the gallbladder I was able to identify indocyanine green and identify the cystic duct. This appeared to be a solitary structure lateral to the common bile duct. the gallbladder had multiple adhesions from the fundus all the way down to the neck. These adhesions came down fairly easily with blunt dissection and hook electrocautery. The gallbladder was also very tense and dilated and had to be decompressed with a laparoscopic aspirating needle. About 50 mL of bile was aspirated to help decompress the gallbladder enough to grasp it and retracted. The gallbladder wall was also very chronically thickened. There were multiple large stones within the neck of the gallbladder. No other abnormalities were noted. The gallbladder was removed and sent to the lab for pathology. Description of Procedure Procedure as well as risks, benefits, and alternatives were discussed with the patient. Written consent was obtained and placed in chart prior to procedure. 1.5 mL of indocyanine green was given intravenously in preop. Patient was brought back to surgical suite. She was placed supine on operating table. Time-out was done to confirm patient and procedure. she was then intubated by the anesthesia department. her abdomen was then prepped and draped in sterile fashion using chlorhexidine prep. 0.5% bupivacaine was infiltrated locally at the site of each port placement. An 8 mm incision was made in the left upper quadrant and a 5 mm Optiview trocar was then advanced through the abdominal layers under direct visualization. Once inside the abdominal cavity, carbon dioxide insufflation was used to create a pneumoperitoneum. The camera was inse rted and the abdomen was inspected. No mediated abnormalities were noted. The patient was placed in 12? reverse Trendelenburg position and rotated 6? to the left. Two 8 mm incisions were made in the right lateral abdomen and 2 8 mm trocars were inserted under direct visualization. An 8 mm incision was made in the supraumbilical region and an 8 mm trocar was inserted under direct visualization. The 5 mm Optiview trocar was then removed and another 8 mm trocar was inserted in its place. The robotic arms were then brought up to the patient's bedside and secured to each port. The camera and instruments were inserted. I then moved over to the robotic consult to take control of the camera and instruments. The gallbladder was grasped at the fundus and retracted cephalad. The infundibulum of the gallbladder was then grasped and retracted laterally. Hook electrocautery was then used to carefully dissect around the neck of the gallbladder. The cystic duct was identified and a window was created around it using hook electrocautery. The cystic artery was also identified and a window was created behind it using hook electrocautery. Critical view of safety was identified visualizing the cystic duct running directly into the neck of the gallbladder and the cystic artery running directly into the wall the gallbladder. The camera view was switched to firefly mode and the indocyanine green within the gallbladder and cystic duct was clearly visualized. No other structures were noted running into this region and there did not appear to be any obstruction of the cystic duct impeding flow of bile into the gallbladder. The camera mode was switched back to regular mode. Hemo lock clips were placed on both the cystic duct and cystic artery. Two clips were placed proximally and 1 distally. Hook electrocautery was then used to transect in between the clips. Once safely away from the caesar hepatus, hook electrocautery was used to dissect the gallbladder off of the liver bed. Once the gallbladder was completely dissected free it was then placed in an Endo- Catch bag and removed through the left upper quadrant port site. The liver bed was carefully inspected. Hemostasis appeared adequate under clips appeared secure. No other intra-abdominal abnormalities were noted. A Riki cone was then used to approximate the fascia of the left upper quadrant port using an 0 V icryl suture. The remaining instruments and camera were removed and the robotic arms were disengaged from the ports. Pneumoperitoneum was released and the ports were removed. The skin of each of the incisions was then approximated using 4-0 Monocryl subcuticular suture. Exofin glue was then applied on top. Patient was then awakened from anesthesia, extubated, and transferred to recovery. Estimated Blood Loss 20 Pathology Yes (Gallbladder) Complications No immediate complications Condition Stable Disposition Same day [facility] Billing Surgery - Charge Forward: Surgery Billing
[2025-04-12] MEDS: fentaNYL CITRATE INJ (*CRX) 100 MCG/2 ML VIAL 25 MCG IV PUSH ×4 (10:18→10:34)
[2025-04-12] MEDS: SCOPOLAMINE 1 MG PATCH 1 PATCH TRANSDERM (11:19)
[2025-04-12] MEDS: oxyCODONE HCL (*CRX) 5 MG TAB IR PO (12:12)
== END 2025-04-12 12:49 | disposition home or self-care (01) ==
PROVIDERS: Visit Provider Surgery
PROC: 0FT44ZZ Resection of Gallbladder, Percutaneous Endoscopic Approach (ICD-10-PCS; CPT 47562; principal; 2025-04-12 07:30)
DX: K80.10 Calculus of gallbladder with chronic cholecystitis without obstruction (principal); K82.8 Other specified diseases of gallbladder; K66.0 Peritoneal adhesions (postprocedural) (postinfection); F12.90 Cannabis use, unspecified, uncomplicated; E66.01 Morbid (severe) obesity due to excess calories; Z68.43 Body mass index [BMI] 50.0-59.9, adult; Z98.890 Other specified postprocedural states
CPT/HCPCS: 47563; 74300; S2900; 88304; A9270; J0330; J0690; J1100; J1200; J1885; J2003; J2250; J2405; J2704; J3010; J7030; J7120